=== PATIENT | male | born 1980 | race African-American/Black ===

== ENCOUNTER 2022-07-26 23:04 | Emergency (ER) | payer OTHER ==
[2022-07-26 23:32] VITALS: BP 108/66; PULSE 80; RESP 16; TEMP 98; BMI 23.7
== END 2022-07-26 23:46 | disposition left against medical advice (07) ==
LOC: FER 23:04
DX: S60.512A Abrasion of left hand, initial encounter (principal); W22.8XXA Striking against or struck by other objects, initial encounter
CPT/HCPCS: 99281-25